=== PATIENT | male | born 1980 | race Caucasian/White ===

== ENCOUNTER 2020-02-25 14:09 | Emergency (ER) | payer OTHER ==
[~2020-02-25] VITALS: Ht 175.3 cm; Wt 104.3 kg
[2020-02-25 14:10] VITALS: BP 153/82
--- NOTE | 2020-02-25 14:15 | NUR ---
1400: ARRIVAL PT ARRIVED TO ED WITH C/O DIZZINESS, LEFT EAR ITCHING, VERTIGO, LEFT SIDE OF HIS CHEST FEELS NUMB AND PT REPORTS "MY EYES AND MY BRAIN ARE NOT MATCHING THEY ARE DELAYED". BEDSIDE MONITORS APPLIED. VITAL SIGNS STABLE. BED IN LOW LOCKED POSITION.
--- NOTE | 2020-02-25 14:33 | ER.PDOC ---
General Chief Complaint: General Complaint Stated Complaint: GENERAL Time seen by MD: 14:26 Source: patient Exam Limitations: no limitations History of Present Illness Initial Comments patient c/o sudden onset of visual disturbance he associates with movement of head; he has had vertigo before and this is similar, except his sx is not spinning--he feels like his eyes are jerking and the light is really bothering his eyes Occurred: yesterday Severity: moderate Associated Symptoms: sense of movement Decreased Ability to Stand: off balance Worsened By: changing position, movement of head Prior symptoms/Treatment: Similar symptoms previous Past Medical History Medical History: other (vertigo) Surgical History: no surgical history Social History Smoking: cigarettes Alcohol Use: none Drug Use: none Review of Systems Constitutional: denies no symptoms reported, denies see HPI, denies chills, denies diaphoresis, denies fever, denies malaise, denies weakness, denies other Eyes: photophobia, vision change (feels as if vision is jerking and lagging behind his brain) Ears: denies no symptoms reported, denies see HPI, denies dizziness, denies pain, denies tinnitus, denies bloody discharge, denies clear discharge, denies purulent discharge, denies serosanguinous discharge, denies previous injury, denies other Nose: denies no symptoms reported, denies see HPI, denies clots, denies congestion, denies epistaxis, denies pain, denies bloody discharge, denies clear discharge, denies purulent discharge, denies serosanguinous discharge, denies previous injury, denies other Mouth: denies no symptoms reported, denies see HPI, denies clots, denies loose teeth, denies pain, denies swelling, denies bloody discharge, denies clear discharge, denies purulent discharge, denies serosanguinous discharge, denies previous injury, denies other Throat: denies no symptoms reported, denies see HPI, denies pain, denies swelling, denies discharge, denies neck stiffness, denies aphonia, denies hoarse, denies muffled, denies painful swallowing, denies difficulty with fluids, denies previous injury, denies other Respiratory: denies no symptoms reported, denies see HPI, denies cough, denies orthopnea, denies shortness of breath, denies stridor, denies wheezing, denies other Cardiovascular: denies no symptoms reported, denies see HPI, denies chest pain, denies edema, denies irregular heart rate, denies lightheadedness, denies palpitations, denies syncope, denies other Gastrointestinal: denies no symptoms reported, denies see HPI, denies abdominal pain, denies constipation, denies diarrhea, denies nausea, denies vomiting, denies other Musculoskeletal: denies no symptoms reported, denies see HPI, denies back pain, denies gout, denies joint pain, denies joint swelling, denies muscle pain, de nies muscle stiffness, denies neck pain, denies other Skin: denies no symptoms reported, denies see HPI, denies change in color, denies change in hair/nails, denies dryness, denies lesions, denies lumps, denies rash, denies other Psychiatric/Neurological: denies no symptoms reported, denies see HPI, denies anxiety, denies depressed, denies emotional problems, denies cognitive dysfunction, denies headache, denies numbness, denies petit mal seizures, denies tingling, denies tonic-clonic seizures, denies unable to move lower ext, denies unable to move upper ext, denies weakness, denies other All Other Systems: Reviewed and Negative Physical Exam General Appearance: alert, no distress EENT: PERRL, pharynx nml, TM's nml, nystagmus (photophobia present) Neck: supple Respiratory: no resp distress, breath sounds nml CVS: reg rate & rhythm, heart sounds.nml Abdomen: non-tender, no distention Skin: no rash, other (diffuse tattoos) Extremities: nml ROM, no pedal edema Neuro/Psych: nml orientation, nml speech/cognition, nml mood/affect Cranial Nerves: nml as tested, no evidence of acute CVA Sensorimotor: nml motor Results/Orders Results/Orders Orders - RASTA STAFFORD DO Meclizine Hcl (Antivert) (02/25/20 14:34) Ct Head Wo Contrast (02/25/20 14:34) Vital Signs Date Time Temp Pulse Resp B/P (MAP) Pulse Ox O2 Delivery O2 Flow Rate FiO2 02/25/20 14:10 98.1 97 18 153/82 (105) 99 Room Air 02/25/20 14:10 98.1 97 18 99 02/25/20 14:10 98.1 97 18 Administered Medications Medications (Trade) Dose Ordered Sig/Ivanna Route PRN Reason Start Time Stop Time Status Last Admin Dose Admin Meclizine HCl (Antivert) 50 mg STAT STAT PO 02/25/20 14:34 02/25/20 14:35 UNV 02/25/20 14:47 50 MG EKG/XRAY/CT/US CT Comments: nothing acute ER DEPART Departure Time of Disposition: 15:12 Disposition: 01 HOME, SELF-CARE Impression: Primary Impression: Vertigo Condition: Improved Patient Instructions: Benign Positional Vertigo Additional Instructions: Return to ER if symptoms worsen or for any emergent concerns. Follow up with your doctor next week for reevaluation. Take meclizine as prescribed for vertigo symptoms. Duration or Time Spent with Pa: 15 min RASTA STAFFORD DO Feb 25, 2020 14:33
[2020-02-25] MEDS ORDERED: ANTIVERT ONE (14:44)
[2020-02-25] MEDS: ANTIVERT PO STA (14:47)
--- NOTE | 2020-02-25 14:58 | DIREP ---
PROCEDURE:CT HEAD OR BRAIN W/O CONTRAST COMPARISON:None. INDICATIONS:acute visual change TECHNIQUE:CT images were created without intravenous contrast. FINDINGS: VENTRICLES:The ventricles are normal in size and configuration. CEREBRUM:Normal cerebral morphology with appropriate umanzor white matter differentiation. CEREBELLUM:Negative. BRAINSTEM:Negative. BASAL CISTERNS:Negative. HEMORRHAGE:No MASS LESION:No ACUTE INFARCT:No SKULL:Normal. SINUSES:Normal. OTHER:None CONCLUSION:No acute intracranial abnormality. Dictated by: Abilio Jordan M.D. on 02/25/2020 at 02:55 PM
== END 2020-02-25 15:28 | disposition home or self-care (01) ==
LOC: ER 14:09
DX: R42 Dizziness and giddiness (principal); F17.210 Nicotine dependence, cigarettes, uncomplicated
CPT/HCPCS: 70450; 99284; J8597